=== PATIENT | male | born 1995 | race Caucasian/White ===

== ENCOUNTER → 2020-03-06 15:16 | Outpatient (BNVA) | payer SELFPAY | PROVIDERS: Visit Provider Nurse Practitioner Family | DX: Z20.828 Contact with and (suspected) exposure to other viral communicable diseases (principal) | CPT/HCPCS: 87635 ==

== ENCOUNTER 2020-12-14 19:13 | Emergency (ER) | payer SELFPAY ==
--- NOTE | 2020-12-14 19:17 | XRR_ITS ---
PROCEDURE INFORMATION: Exam: XR Chest Exam date and time: 12/14/2020 7:17 PM Age: 25 years old Clinical indication: Sternal or substernal pain; Additional info: Cp TECHNIQUE: Imaging protocol: XR of the chest. Views: 1 view. COMPARISON: No relevant prior studies available. FINDINGS: Lungs: Unremarkable. No consolidation. Pleural spaces: Unremarkable. No pleural effusion. No pneumothorax. Heart/Mediastinum: Unremarkable. No cardiomegaly. Bones/joints: Unremarkable. Other findings: Lordotic chest x-ray. XR/XR chest 1V portable [id number] IMPRESSION: No acute findings. Radiation Dose CTDIVOL = (mGy): DLP = (mGy-cm)
[2020-12-14 19:22] VITALS: BP 159/104; PULSE 76; RESP 18; TEMP 36.8; O2SAT 97; BMI 35.2
--- NOTE | 2020-12-14 20:06 | W.ED.CHESTPA ---
HPI - Chest Pain General: Chief Complaint: Chest Pain Stated Complaint: CP an tingling Time Seen by Provider: 12/14/20 19:56 History of Present Illness: HPI narrative: 25-year-old male patient comes in with some chest discomfort for the last 2 days. Patient points to his left upper chest wall where he has had the pain. Patient cannot relate that anything makes the pain better or worse. Patient appears well. Patient has no family history of early cardiac disease. Patient does report a history of high blood pressure. Patient does not take any routine medication. Review of Systems General: Reports: 10 or more systems reviewed and unremarkable except in HPI and below Card: Reports: chest pain [facility] ED PFSH: Social History (Updated 03/06/20 @ 15:08 by Hemalatha Burkett NP) Smoking and tobacco status: current every day smoker Alcohol intake: never Physical Exam Const: COMMON NORMALS: no acute distress and patient oriented x3 GENERAL APPEARANCE: cooperative HENMT: COMMON NORMALS: normocephalic and Normal external nose present HEAD & SCALP: normal to inspection and normocephalic NOSE: Normal external nose present MOUTH: Normal oral and palatal mucosa present THROAT: posterior oropharynx normal Eye: GENERAL EYE: appearance normal, both eyes and all related structures Neck/C-Spine: COMMON NORMALS: full ROM Chest: COMMONS NORMALS: normal inspection of the chest Resp: COMMON NORMALS: normal respiratory effort EFFORT & INSPECTION: Yes able to speak in complete sentences Cardio: COMMON NORMALS: regular rate and regular rhythm RATE: regular rate RHYTHM: regular rhythm GI: COMMON NORMALS: non-tender : COMMON NORMALS: Yes no CVA tenderness BLADDER/KIDNEY EXAM: Yes no CVA tenderness Back/Pelvis: COMMON NORMALS: no CVA tenderness and thoracic and lumbar spine normal to inspection Extremity: COMMON NORMALS: normal to inspection Neuro: COMMON NORMALS: patient oriented x3 and moves all extremities Psych: COMMON NORMALS: mental status grossly normal and cooperative Skin: COMMON NORMALS: no rashes or lesions noted GENERAL SKIN EXAM: no rashes or lesions noted Course ED course: 2100, patient's labs come back with some elevation in liver enzymes and bilirubin. This may be suggestive of abdominal etiology such as gallbladder with stone. We will go ahead and add a CT of the abdomen and pelvis to rule out any significant infection such as abscess or gallbladder obstruction. Ultrasound was also added to plan. Vital Signs: Vital signs: Vital Signs Temperature 98.3 F 12/14/20 19:22 Pulse Rate 57 L 12/14/20 21:40 Respiratory Rate 16 12/14/20 21:40 Blood Pressure 147/83 12/14/20 21:40 Pulse Oximetry 96 12/14/20 21:40 MDM - Chest Pain MDM Narrative: Medical decision making narrative: 25-year-old male patient comes in today with some left chest wall discomfort. Patient reports pain on and off for the last 2 days. Patient reports nothing seemed to improve pain or worsening pain. On exam abdomen was soft nontender. Skin was warm and dry. Respirations were even lungs were clear to auscultation. Vital signs noted and normal regular heart rate with a elevated blood pressure. Differential diagnosis includes but not limited to ACS, uncontrolled hypertension, gallbladder disease, gastritis. Laboratory values noted some elevation in liver enzymes and bilirubin. Patient also has a some mild decrease in his sodium at 135. Hemoglobin hematocrit was slightly elevated at 17.5 and 51. Troponin was 8. EKG was normal. Was concerned that there may be some gallbladder issues we went ahead and did a CT of the abdomen pelvis which indicated no abnormality. Ultrasound of the gallbladder and abdomen indicated a fatty liver but no obvious gallbladder disease. Reviewed exam with patient recommended dietary changes, with plenty of fruits and vegetables in the DASH plan. Discussed need for follow-up with primary care for further evaluation and consideration of treatment. No signs of serious injury or illness is noted at this time. Patient reported understanding and agreed to plan. Lab Data: Labs: Lab Results 12/14/20 12/14/20 12/14/20 20:14 20:14 20:14 WBC 9.7 10^3/uL 10^3/ uL (4.0-10.0) RBC 5.93 10^6/uL H 10 ^6/uL (4.1-5.3) Hgb 17.5 g/dL H g/dL (11.7-16.6) Hct 51.0 % % (42.0-52.0) MCV 86.0 fl fl (80-94) MCH 29.5 pg pg (28.0-34.0) MCHC 34.3 g/dL g/dL (30.0-36.0) RDW 11.9 % L % (12.1-15.1) Plt Count 185 10^3/cmm 10^3 /cmm (130-400) MPV 10.7 fL H fL (7.4-10.4) Neut % (Auto) 65.5 % % Lymph % (Auto) 26.6 % % [place] % (Auto) 6.3 % % Eos % (Auto) 0.4 % % Baso % (Auto) 0.5 % % Neut # (Auto) 6.33 10^3/uL 10^3 /uL (1.8-7.7) Lymph # (Auto) 2.6 10^3/uL 10^3/ uL (0.8-4.8) [place] # (Auto) 0.6 10^3/uL 10^3/ uL (0.2-0.9) Eos # (Auto) 0.0 10^3/uL 10^3/ uL (0.0-0.8) Baso # (Auto) 0.1 10^3/uL 10^3/ uL (0.0-0.1) Nucleated RBC % (a uto) 0 % % Nucleated RBCs # 0.0 /100WBC /100W BC Sodium 135 mmol/L L mmol /L (136-145) Potassium 3.7 mmol/L mmol/L (3.5-5.1) Chloride 96 mmol/L L mmol/ L (98-107) Carbon Dioxide 27 mmol/L mmol/L (22-29) Anion Gap 15.7 (5-19) BUN 8 mg/dL mg/dL (6-20) Creatinine 0.7 mg/dL mg/dL (0.7-1.2) GFR Calculation 135.3 mL/min H mL /min (90-130) Glucose 199 mg/dL H mg/dL (65-115) Calculated Osmolal ity 284 mOsm/kg L mOs m/kg (285-295) Calcium 9.6 mg/dL mg/dL (8.5-10.5) Total Bilirubin 1.3 mg/dL H mg/dL (0.15-1.2) AST 95 U/L H U/L (0-40) ALT 163 U/L H U/L (0-41) Alkaline Phosphata se 106 IU/L IU/L (40-130) Troponin T Baselin e 8 ng/L ng/L (0-15) Total Protein 8.5 g/dL g/dL (6.6-8.7) Albumin 4.9 g/dL g/dL (3.5-5.2) Globulin 3.6 g/dL g/dL (1.3-4.6) EKG Data^: EKG 1: Attestation: I personally reviewed and interpreted this EKG as follows: (1999, EKG shows a sinus rhythm with a regular rate at [address] elevation or ectopy is noted. No prior exam was available for comparison.) Discharge Plan Discharge Patient Disposition: Home Clinical Impression: Atypical chest pain, Elevated liver enzymes Hypertension Qualifiers: Hypertension type: unspecified Qualified Code(s): I10 - Essential (primary) hypertension Condition: Stable Prescriptions: No Action No Known Home Medications RF: 0 Discharge Orders: Discharge ED (Routine); Ordered 12/14/20 Ordered By: Luigi Aguillon Discharge Activity: Increase activity as tolerated Patient Instructions: DASH Eating Plan (ED), Opioid Safety Activity Restrictions/Additional Instructions: Healthy diet and activity. Drink plenty of water. Stop smoking. Limit alcohol intake to no more than 1-2 beverages a day. Consider the Dash eating plan to assist with better blood pressure control. Follow-up with primary care for further instructions. Return to the ER for new concerns. Coding Level of Care Code ED Electric Motor Mechanic for Chg Fwd Exam Comprehensive
[2020-12-14 20:31] LABS: Basophils # 0.1 10^3/uL (0.0-0.1); Basophils % 0.5 %; Eosinophils % 0.4 %; Hemoglobin 17.5 g/dL (11.7-16.6); Lymphocytes # 2.6 10^3/uL (0.8-4.8); Lymphocytes % 26.6 %; Mean Corpuscular HGB Conc 34.3 g/dL (30.0-36.0); Mean Corpuscular Hemoglobin 29.5 pg (28.0-34.0); Mean Platelet Volume 10.7 fL (7.4-10.4); Monocytes # 0.6 10^3/uL (0.2-0.9); Monocytes % 6.3 %; Neutrophils # 6.33 10^3/uL (1.8-7.7); Neutrophils % 65.5 %; Nucleated Red Blood Cells % 0 %; Platelet Count 185 10^3/cmm (130-400); Red Blood Count 5.93 10^6/uL (4.1-5.3); Red Cell Distribution Width 11.9 % (12.1-15.1); White Blood Count 9.7 10^3/uL (4.0-10.0)
[2020-12-14 20:36] VITALS: BP 154/97; PULSE 72; RESP 16; O2SAT 98
[2020-12-14 20:50] LABS: Troponin(5th) Baseline 8 ng/L (0-15)
[2020-12-14 20:53] LABS: Alanine Aminotransferase 163 U/L (0-41); Albumin Level 4.9 g/dL (3.5-5.2); Alkaline Phosphatase 106 IU/L (40-130); Anion Gap 15.7 (5-19); Aspartate Amino Transferase 95 U/L (0-40); Blood Urea Nitrogen 8 mg/dL (6-20); Calcium 9.6 mg/dL (8.5-10.5); Carbon Dioxide 27 mmol/L (22-29); Chloride 96 mmol/L (98-107); Globulin 3.6 g/dL (1.3-4.6); Glomerular Filtration Rate 135.3 mL/min (90-130); Glucose 199 mg/dL (65-115); Osmolality Calculated 284 mOsm/kg (285-295); Potassium 3.7 mmol/L (3.5-5.1); Sodium 135 mmol/L (136-145); Total Bilirubin 1.3 mg/dL (0.15-1.2); Total Protein 8.5 g/dL (6.6-8.7)
--- NOTE | 2020-12-14 20:56 | CTR_ITS ---
PROCEDURE INFORMATION: Exam: CT Abdomen And Pelvis With Contrast Exam date and time: 12/14/2020 8:56 PM Age: 25 years old Clinical indication: Abnormal findings; Abnormal lab test; Elevated liver enzymes; Additional info: Elevated liver enzymes, radiating chest pain TECHNIQUE: Imaging protocol: Computed tomography of the abdomen and pelvis with contrast. Radiation optimization: All CT scans at this facility use at least one of these dose optimization techniques: automated exposure control; mA and/or kV adjustment per patient size (includes targeted exams where dose is matched to clinical indication); or iterative reconstruction. Contrast material: OMNI 300; Contrast volume: 95 ml; Contrast route: INTRAVENOUS (IV); COMPARISON: CR (CHEST, ) 12/14/2020 7:24 PM RADIATION DOSE METRICS: Total DLP (mGy-cm): FINDINGS: Liver: Normal. No mass. Gallbladder and bile ducts: Normal. No calcified stones. No ductal dilation. Pancreas: Normal. No ductal dilation. Spleen: One or more accessory splenules. Adrenal glands: Normal. No mass. Kidneys and ureters: Normal. No hydronephrosis. Stomach and bowel: Unremarkable. No obstruction. No mucosal thickening. Appendix: No evidence of appendicitis. Intraperitoneal space: Unremarkable. No free air. No significant fluid collection. Vasculature: Unremarkable. No abdominal aortic aneurysm. Lymph nodes: Unremarkable. No enlarged lymph nodes. Urinary bladder: Unremarkable as visualized. Reproductive: Unremarkable as visualized. Bones/joints: Unremarkable. No acute fracture. Soft tissues: Unremarkable. CT/CT abdomen pelvis w con* [id number] IMPRESSION: No acute findings. Radiation Dose CTDIVOL = (mGy): DLP = 1992.78 (mGy-cm)
--- NOTE | 2020-12-14 20:57 | USR_ITS ---
PROCEDURE INFORMATION: Exam: US Abdomen, Limited; Right Upper Quadrant Exam date and time: 12/14/2020 8:57 PM Age: 25 years old Clinical indication: Pain; Additional info: Elevated liver enzymes R/O gallbladder pathology TECHNIQUE: Imaging protocol: US abdomen. Real time ultrasound with image documentation. Limited exam focused on the right upper quadrant. COMPARISON: CT abdomen pelvis w con* [id number] 12/14/2020 9:16 PM FINDINGS: Liver: 18.1 cm liver. Echogenic liver consistent with fatty infiltration of the liver. Gallbladder: 2 mm gallbladder wall. Sonographically negative Boogie's sign suggesting no cholecystitis. Common bile duct: 3.1 mm common bile duct. Pancreas: Visualized pancreas is unremarkable. Right kidney: 12.9 x 5.0 x 5.6 cm right kidney. US/US abdomen limited [id number] IMPRESSION: 1. Echogenic liver consistent with fatty infiltration of the liver. 2. Normal gallbladder. Radiation Dose CTDIVOL = (mGy): DLP = (mGy-cm)
[2020-12-14] MEDS: iohexol 300 mg/mL 100 mL Btl IV (21:19)
[2020-12-14] MEDS: ondansetron 2 mg/ML SDV 2 mL 4 MG IVP (21:27)
[2020-12-14] MEDS: ketorolac 30 mg/mL INJ 15 MG IVP (21:27)
[2020-12-14 21:40] VITALS: BP 147/83; PULSE 57; RESP 16; O2SAT 96
[2020-12-14 22:40] VITALS: BP 147/83; PULSE 98; RESP 19; O2SAT 94
--- NOTE | 2020-12-15 11:13 | DCPLANNER ---
manager staffing had message to speak with patient about getting established with a primary care physician. manager staffing spoke with patient, he stated that he will call the physicians office that his goes to. Patient stated that he would take care of scheduling an appointment.
== END 2020-12-14 22:42 | disposition home or self-care (01) ==
PROVIDERS: Emergency Medicine; Emergency Provider Nurse Practitioner Family
DX: R07.89 Other chest pain (principal); R74.8 Abnormal levels of other serum enzymes; F17.210 Nicotine dependence, cigarettes, uncomplicated
CPT/HCPCS: 71045; 74177; 76705; 80053; 84484; 85025; 96374; 96375; 99284; J1885; J2405; Q9967